=== PATIENT | female | born 2005 | race Caucasian/White ===

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

== ENCOUNTER 2025-04-16 11:15 | Outpatient (CLI) | payer OTHER, SELFPAY ==
--- OUTSIDE RECORDS SUMMARY | 2025-04-16 12:40 | XMS_ITS | Encounter Summary ---
Author Organization [facility] Address [address] [place] [address] Care Team Providers Care Help Desk Rep Name Role Phone Cameron Castro MD Primary Care Provider [phone] Encounter Details Date Type Department Care Team (Late Contact Info) Description 11/22/2024 Results Follow-Up [facility] GYNECOLOGY [address] [facility] [address] [place] [address] Yari Guerra MD [address] [facility] [address] [place] [address] Social History Tobacco Use Types Packs/Day Years Used Date Smoking Tobacco: Never Smokeless Tobacco: Never Alcohol Use Standard Drinks/Week Comments Never 0 (1 standard drink = 0.6 oz pur e alcohol) Comments No Sex and Gender Information Value Date Recorded Sex Assigned at Female 01/12/2025 10:39 PM EDT Legal Sex Female 12:30 PM EDT Gender Identity Not on file Sexual Orientation Not on file documented as of this encounter Plan of Treatment Upcoming Encounters Date Type Department Care Team (Late Contact Info) Description 07/15/2025 1:00 PM EST Office Visit [facility] OBGYN [address] [facility] [address] [place] [phone] Yari Guerra MD [address] [facility] [address] [place] [address] documented as of this encounter Visit Diagnoses Not on filedocumented in this encounter Care Teams Help Desk Rep Relationship Specialty Start Date End Date Cameron Castro MD PCP - General Pediatrics 07/28/16 documented as of this encounter
--- OUTSIDE RECORDS SUMMARY | 2025-04-16 12:40 | XMS_ITS | Encounter Summary ---
Author Organization [facility] Address [address] [place] [id number] Care Team Providers Care Tax Examining Technician Name Role Phone Cameron Castro MD Primary Care Provider [phone] Encounter Details Date Type Department Care Team (Late st Contact Info) Description 11/22/2024 Results Follow-Up [facility] OBGYN [address] [place], [place] [phone] Yari Guerra MD [address] [place] [address] Social History Tobacco Use Types Packs/Day Years [...] Encounters Date Type Department Care Team (Late st Contact Info) Description 07/15/2025 1:00 PM EST Office Visit [facility] OBGYN [address] [phone] Yari Guerra MD [address] [place] [address] documented as of this encounter Visit Diagnoses Not on filedocumented in this encounter Care Teams Tax Examining Technician Relationship Specialty Start Date End Date Cameron Castro MD PCP - General Pediatrics 07/28/16 documented as of this encounter
--- OUTSIDE RECORDS SUMMARY | 2025-04-16 12:40 | XMS_ITS | Encounter Summary ---
Author Organization [facility] Address [address] [place] [id number] Care Team Providers Care Sanitation Worker Cleaning Machinery Name Role Phone Cameron Castro MD Primary Care Provider [phone] Reason for Visit * Reason Comments Med Refill Encounter Details Date Type Department Care Team (Late st Contact Info) Description 04/05/[address] [facility] GASTROENTEROLOGY [address] [phone] Brittney Wolff PA-C [address] [place] [id number] Vitamin D deficiency Social History Tobacco Use Types Packs/Day Years [...] on file documented as of this encounter Miscellaneous Notes * Telephone Encounter - Keren Vega MA - 04/07/2025 8:03 AM EST Rx Refill Note Requested Prescriptions Pending Prescriptions Disp Refills vitamin D (ERGOCALCIFEROL) 1.25 MG (22257 UT) capsule capsule [Pharmacy Med Name: VITAMIN D2 50,000IU (ERGO) CAP RX] 12 capsule 0 Sig: TAKE 1 CAPSULE BY MOUTH 1 TIME EVERY WEEK Last office visit with prescribing clinician: 01/13/2025 Last telemedicine visit with prescribing clinician: Visit date not found Next office visit with prescribing clinician: Visit date not found Keren Vega MA 04/07/25, 08:03 EST documented in this encounter Plan of Treatment Upcoming Encounters Date Type Department Care Team (Late st Contact Info) Description 07/15/2025 1:00 PM EST Office Visit [facility] OBGYN [address] [facility] [address] [place] [address] Yari Guerra MD [address] [facility] [address] [place] [address] documented as of this encounter Visit Diagnoses Diagnosis Vitamin D deficiency documented in this encounter Care Teams Sanitation Worker Cleaning Machinery Relationship Specialty Start Date End Date Cameron Castro MD PCP - General Pediatrics 07/28/16 documented as of this encounter
--- OUTSIDE RECORDS SUMMARY | 2025-04-16 12:40 | XMS_ITS | Clinical Summary ---
Author Organization [facility] Address [address] [place] [id number] Care Team Providers Care Space Buyer Name Role Phone Cameron Castro MD Primary Care Provider [phone] Allergies No known active allergies Medications busPIRone (BUSPAR) 7.5 MG tablet Take 1 tablet by mouth 2 (Two) Times a Day. 12/26/19 23 Active loperamide (IMODIUM) 2 MG capsule Take 1 capsule by mouth 4 (Four) Times a Day As Needed for Diarrhea. Active norethindrone- ethinyl estradiol FE (Junel FE 06/17) 1-20 MG-MCG per tablet Take 1 tablet by mouth Daily. 84 tablet 4 05/31/19 25 026 Active dicyclomine (BENTYL) 10 MG capsuleIndicat ions:Irritable bowel syndrome with diarrhea TAKE 1 CAPSULE BY MOUTH FOUR TIMES DAILY NEEDED FOR ABDOMINAL CRAMPS 360 capsule 01/15/20 25 Active vitamin D (ERGOCALCIFERO L) 1.25 MG (60571 UT) capsule capsuleIndicat ions:Vitamin D deficiency TAKE 1 CAPSULE BY MOUTH 1 TIME EVERY WEEK 12 capsule 04/07/20 25 Active vitamin D (ERGOCALCIFERO L) 1.25 MG (00010 UT) capsule capsuleIndicat ions:Vitamin D deficiency Take 1 capsule by mouth 1 (One) Time Per Week. 12 capsule 01/15/20 25 025 Discontinued Active Problems Problem Noted Date Diagnosed Date Family history of breast cancer 05/10/2024 PCOS (polycystic ovarian syndrome) 06/15/2022 Encounters Date Type Department Care Team Description 04/05/2025 Refill [facility] GASTROENTEROLOGY [address] [facility] [address] [place] [address] Brittney Wolff PA-C Vitamin D deficiency 01/14/2025 Refill [facility] GASTROENTEROLOGY [address] [facility] [address] [place] [address] Brittney Wolff PA-C Irritable bowel syndrome with diarrhea 01/14/2025 Results Follow-Up [facility] GASTROENTEROLOGY [address] [facility] [address] [place] [address] Brittney Wolff PA-C from Last 3 Months Family History Medical History Relation Name Comments Crohn's disease Cousin Hypertension Father Hypertension Maternal Grandfather Breast cancer Mother Relation Name Status Comments Cousin Alive Father Maternal Grandfather Mother Alive Social History Tobacco Use Types Packs/Day Years Used Date Smoking Tobacco: Never Smokeless Tobacco: Never Tobacco Cessation:Counseling Given: Not Answered Alcohol Use Standard Drinks/Week Comments Never 0 (1 standard drink = 0.6 oz pur e alcohol) Comments No Sex and Gender Information Value Date Recorded Sex Assigned at Female 01/12/2025 10:39 PM EDT Legal Sex Female 12:30 PM EDT Gender Identity Not on file Sexual Orientation Not on file Last Filed Vital Signs Vital Sign Reading Time Taken Comments Blood Pressure 128/88 01/13/2025 2:05 PM EDT Pulse 102 01/13/2025 2:05 PM EDT Temperature 36.4 C (97.5 F) 01/13/2025 2:05 PM EDT Respiratory Rate 14 01/18/2023 10:30 AM EDT Oxygen Saturation 98% 01/13/2025 2:05 PM EDT Inhaled Oxygen Concentration - - Weight 111 kg (245 lb 12.8 oz) 01/13/2025 2:05 P M EDT Height 160 cm (5' 2.99 ) 01/13/2025 2:05 PM EDT Body Mass Index 43.55 01/13/2025 2:05 PM EDT Plan of Treatment Upcoming Encounters Date Type Department Care Team (Late st Contact Info) Description 07/15/2025 1:00 PM EST Office Visit [facility]YN [address] [address] [place] [address] Yari Guerra MD [address] [place] [address] Health Maintenance Due Date Last Done Comments MENINGOCOCCAL B VACCINE (1 of 2 - Standard) 2021 HEPATITIS C SCREENING 06/15/2022 INFLUENZA VACCINE 12/27/2024 ANNUAL PHYSICAL 05/10/2025 05/10/2024 TDAP/TD VACCINES (3 - Td or Tdap) 05/04/2032 05/04/2022, 12/28/2016 Pneumococcal Vaccine 0-49 Aged Out 2007, 07/10/2006, 05/08/2006, Additional history exists No longer eligible based on patient's age to complete this topic HPV VACCINES Completed 12/21/2018, 05/24/2018 MENINGOCOCCAL VACCINE Completed 05/04/2022, 017 Insurance [employer] Care Teams Space Buyer Relationship Specialty Start Date End Date Cameron Castro MD PCP - General Pediatrics 07/28/16
[2025-04-16 13:15] LABS: 25-OH Vitamin D, Total 62.0 ng/mL (30-100)
[2025-04-16 17:40] LABS: Albumin Level 4.4 g/dl (3.5-5.0); Chloride 103 mmol/L (98-107)
[2025-04-16 17:41] LABS: Potassium 3.9 mmoL/L (3.5-5.1); Sodium 139 mmol/L (136-145)
[2025-04-16 17:43] LABS: Alanine Aminotransferase 27 U/L (12-78); Anion Gap 15.9 mEq/L (5-15); Aspartate Amino Transferase 24 U/L (14-36); Blood Urea Nitrogen 10 mg/dl (7-17); Carbon Dioxide 24 mmol/L (22.0-30.0); Creatinine,Serum 0.80 mg/dl (0.52-1.04); Estimated Glomerular Filt Rate 92 ml/min (>60); GFR (African American) 112 ML/MIN (>60)
[2025-04-16 17:44] LABS: Albumin/Globulin Ratio 1.7 (1.1-1.8); Alkaline Phosphatase 56 U/L (38-126); Bilirubin,Total 0.6 mg/dl (0.2-1.3); Calcium 9.1 mg/dl (8.4-10.2); Globulin 2.6 g/dL (1.3-3.2); Glucose 86 mg/dl (74-100); Total Protein,Serum 7.0 g/dl (6.3-8.2)
== END 2025-04-16 23:59 | disposition home or self-care (01) ==
LOC: LAB 11:16
PROVIDERS: PCP Pediatrics; Visit Provider Physician Assistant
DX: E55.9 Vitamin D deficiency, unspecified (principal)
CPT/HCPCS: 36415; 80053; 82306